=== PATIENT | female | born 1975 | race Caucasian/White ===

== ENCOUNTER 2016-08-18 18:31 | Emergency (ER) | payer OTHER ==
[2016-08-18 20:56] VITALS: BP 132/85
--- NOTE | 2016-08-18 20:57 | UC ---
Ear Complaint HPI - HPI Summary HPI Summary: 40 yo female who wears ear buds at least 7 hours a day and itches her ears with jamia pins presents with a 9 day hx of decreased hearing left ear no otorrhea no fever - History of Current Complaint Chief Complaint: UCEar Stated Complaint: LT EAR COMPLAINT Time Seen by Provider: 08/18/16 20:57 Hx Obtained From: Patient Hx Last Menstrual Period: 07/26/16 Onset/Duration: Gradual Onset, Lasting Days Severity Initially: Moderate Pain Intensity: 4 Pain Scale Used: 0-10 Numeric Associated Signs/Symptoms: Positive: Hearing Loss - Allergies/Home Medications Allergies/Adverse Reactions: Allergies Allergy/AdvReac Type Severity Reaction Status Date / Time No Known Allergies Allergy Verified 08/18/16 20:46 Home Medications: Home Medications Citalopram TAB* [CeleXA TAB*] 3 mg PO DAILY 08/18/16 [History Confirmed 08/18/16 ] PMH/Surg Hx/FS Hx/Imm Hx Previously Healthy: Yes - Surgical History Surgical History: Yes Surgery Procedure, Year, and Place: rhinoplasty, gum/palate surgery - Family History Known Family History: Positive: Hypertension Negative: Cardiac Disease - Social History Alcohol Use: None Substance Use Type: None Smoking Status (MU): Never Smoked Tobacco Review of Systems Constitutional: Negative Skin: Negative Eyes: Negative ENT: Ear Ache Respiratory: Negative Cardiovascular: Negative Gastrointestinal: Negative Genitourinary: Negative Motor: Negative Neurovascular: Negative Musculoskeletal: Negative Neurological: Negative Psychological: Negative All Other Systems Reviewed And Are Negative: Yes Physical Exam Triage Information Reviewed: Yes Appearance: Well-Appearing, No Pain Distress, Well-Nourished Vital Signs: Initial Vital Signs Temp 98.5 F 08/18/16 20:49 Pulse 82 08/18/16 20:49 Resp 16 08/18/16 20:49 BP 132/85 08/18/16 20:49 Pulse Ox 97 08/18/16 20:49 Vital Signs Reviewed: Yes Eyes: Positive: Conjunctiva Clear ENT: Positive: Pharynx normal, TMs normal - right, left unable to visualize. Negative: Hearing grossly normal, Nasal congestion, Nasal drainage Neck: Positive: Supple, Nontender Respiratory: Positive: Lungs clear, Normal breath sounds, No respiratory distress Cardiovascular: Positive: RRR, No Murmur Musculoskeletal: Positive: ROM Intact, No Edema Neurological Exam: Normal Neurological: Positive: Alert Psychological Exam: Normal Skin Exam: Normal Ear Complaint Course/Dx - Course Course Of Treatment: after flush tm ok. mild tragal tenderness - Differential Dx/Diagnosis Provider Diagnoses: left otitis externa. left cerumen impaction Discharge - Discharge Plan Condition: Stable Disposition: HOME Patient Education Materials: Otitis Externa (ED) Referrals: No Primary Care Phys,NOPCP [Primary Care Provider] - Additional Instructions: use drops as directed tylenol or advil if needed recheck for new or worsening symptoms
[2016-08-18] MEDS ORDERED: Neomyc/Polym/HC 1% OTIC SUSP* **OTIC LEFT EAR ONE (21:34)
== END 2016-08-18 21:50 | disposition home or self-care (01) ==
LOC: UCCORT 18:31
DX: H60.92 Unspecified otitis externa, left ear (principal); H61.22 Impacted cerumen, left ear; R03.0 Elevated blood-pressure reading, without diagnosis of hypertension
CPT/HCPCS: 99203; A9270-GY; G0463